=== PATIENT | male | born 1955 | race Caucasian/White ===

== ENCOUNTER → 2020-08-06 09:43 | Outpatient (BNVA) | payer OTHER, SELFPAY | PROVIDERS: Family Provider Family Medicine; PCP Family Medicine; Visit Provider Family Medicine | DX: I10 Essential (primary) hypertension (principal); E78.5 Hyperlipidemia, unspecified; Z12.5 Encounter for screening for malignant neoplasm of prostate | CPT/HCPCS: 80053; 80061; 81015; 82043; 85025; G0103 ==

== ENCOUNTER → 2020-08-07 09:43 | Outpatient (BNVA) | payer OTHER, SELFPAY | PROVIDERS: Family Provider Family Medicine; PCP Family Medicine; Visit Provider Family Medicine | DX: I10 Essential (primary) hypertension (principal); E78.5 Hyperlipidemia, unspecified; E03.9 Hypothyroidism, unspecified; Z12.5 Encounter for screening for malignant neoplasm of prostate | CPT/HCPCS: 84443 ==

== ENCOUNTER 2020-09-11 13:56 | Outpatient (CLI) | payer OTHER, SELFPAY ==
--- NOTE | 2020-09-11 14:01 | XR_ITS ---
WS: [id number] LEFT KNEE: 3 VIEW(S) TECHNIQUE: AP, oblique(s) and lateral. HISTORY: left anterior knee pain COMPARISON: 03/08/2013 No fracture or dislocation. No joint space narrowing or osteophytes. No joint effusion. No soft tissue abnormality. XR/XR knee LT 3V* [id number] IMPRESSION: Normal LEFT knee.
== END 2020-09-11 13:57 | disposition home or self-care (01) ==
LOC: RADWPI 14:00
PROVIDERS: PCP Family Medicine; Visit Provider Family Medicine
DX: M25.562 Pain in left knee (principal)
CPT/HCPCS: 73562

== ENCOUNTER 2020-10-02 13:02 | Outpatient (CLI) | payer OTHER, SELFPAY ==
--- NOTE | 2020-10-02 13:00 | MR_ITS ---
WS: [id number] MRI LEFT KNEE HISTORY: LEFT KNEE PAIN COMPARISON: 09/11/2020 knee radiographs. Anterior cruciate ligament: Intact. Posterior cruciate ligament: Intact. Medial collateral ligament: Intact. Posterior lateral corner structures: Intact. Medial menisci: Intact. Normal signal, size and shape. Lateral meniscus: Intact. Normal signal, size and shape. Extensor mechanism: Distal quadriceps tendon and patellar tendons are intact. Fluid and soft tissue: No joint effusion. No Gong's cyst. Osseous and articular structures: Patellofemoral compartment: Normal. Medial compartment: No significant narrowing or degenerative change. Lateral compartment: No significant narrowing or degenerative change. MR/MR knee LT wo con* [id number] IMPRESSION: Unremarkable MRI LEFT knee. No significant abnormalities are identified.
== END 2020-10-02 13:03 | disposition home or self-care (01) ==
LOC: RADSHAW 13:02
PROVIDERS: PCP Family Medicine; Visit Provider Family Medicine
DX: M25.562 Pain in left knee (principal)
CPT/HCPCS: 73721

== ENCOUNTER → 2020-12-03 08:35 | Outpatient (BNVA) | payer OTHER, SELFPAY | PROVIDERS: PCP Family Medicine; Visit Provider Family Medicine | DX: E03.9 Hypothyroidism, unspecified (principal) | CPT/HCPCS: 84443 ==

== ENCOUNTER → 2021-03-03 09:19 | Outpatient (BNVA) | payer OTHER, SELFPAY | PROVIDERS: PCP Family Medicine; Visit Provider Family Medicine | DX: E78.5 Hyperlipidemia, unspecified (principal) | CPT/HCPCS: 80053; 80061 ==

== ENCOUNTER → 2021-03-19 14:50 | Outpatient (BNVA) | payer OTHER, SELFPAY | PROVIDERS: PCP Family Medicine; Visit Provider Family Medicine | DX: R79.89 Other specified abnormal findings of blood chemistry (principal); M25.562 Pain in left knee | CPT/HCPCS: 80053 ==

== ENCOUNTER → 2021-06-15 09:32 | Outpatient (BNVA) | payer OTHER, SELFPAY | PROVIDERS: PCP Family Medicine; Visit Provider Family Medicine | DX: R79.89 Other specified abnormal findings of blood chemistry (principal); E03.9 Hypothyroidism, unspecified; Z12.5 Encounter for screening for malignant neoplasm of prostate; E78.5 Hyperlipidemia, unspecified; I10 Essential (primary) hypertension | CPT/HCPCS: 80053; 80061; 82043; 84443; 85025; G0103 ==

== ENCOUNTER → 2021-06-17 08:37 | Outpatient (BNVA) | payer OTHER, SELFPAY | PROVIDERS: PCP Family Medicine; Visit Provider Family Medicine | DX: R79.89 Other specified abnormal findings of blood chemistry (principal) | CPT/HCPCS: 80074 ==

== ENCOUNTER 2021-08-16 10:26 | Outpatient (CLI) | payer OTHER, SELFPAY ==
--- NOTE | 2021-08-16 10:15 | US_ITS ---
WS: [id number] ULTRASOUND ABDOMEN LIMITED CLINICAL INFORMATION: elevated LFT's COMPARISON: None. FINDINGS: Liver Size: Normal. Craniocaudal length: 13.0 cm. Echogenicity: Normal. Surface nodularity: None. Mass (size and location): None. Bile ducts Intrahepatic ducts: Normal. Common bile duct diameter: 0.4 cm. Gallbladder Normal. Gallstones: None. Gallbladder sludge: None. Gallbladder wall thickening: None. Pericholecystic fluid: None. Sonographic Minor sign: Absent. Pancreas Normal as visualized. Right kidney: Slightly complex right renal cyst with a single septation measuring 1.0 x 0.8 cm Hydronephrosis: None. Size: 9.5 cm x 4.8 cm x 4.8 cm. Abdominal aorta and IVC Visualized portions are normal. Ascites: None. US/US abdomen limited [id number] IMPRESSION: 1. Normal liver and gallbladder. 2. Hydronephrosis in right kidney. 3. Slightly complex right renal cyst with a single septation measuring 1.0 x 0 .8 cm
== END 2021-08-16 10:27 | disposition home or self-care (01) ==
PROVIDERS: PCP Family Medicine; Visit Provider Family Medicine
DX: R94.5 Abnormal results of liver function studies (principal); N13.30 Unspecified hydronephrosis; N28.1 Cyst of kidney, acquired
CPT/HCPCS: 76705

== ENCOUNTER → 2022-03-18 11:17 | Outpatient (BNVA) | payer OTHER, SELFPAY | PROVIDERS: PCP Family Medicine; Visit Provider Family Medicine | DX: E03.9 Hypothyroidism, unspecified (principal); R79.89 Other specified abnormal findings of blood chemistry; I10 Essential (primary) hypertension; K21.9 Gastro-esophageal reflux disease without esophagitis | CPT/HCPCS: 80053; 84443 ==

== ENCOUNTER → 2022-08-16 08:58 | Outpatient (BNVA) | payer OTHER, SELFPAY | PROVIDERS: PCP Family Medicine; Visit Provider Family Medicine | DX: I10 Essential (primary) hypertension (principal); E78.5 Hyperlipidemia, unspecified; Z12.5 Encounter for screening for malignant neoplasm of prostate; R53.83 Other fatigue | CPT/HCPCS: 80053; 80061; 82043; 84403; 84443; 85025; G0103 ==

== ENCOUNTER → 2023-02-24 11:38 | Outpatient (BNVA) | payer BC, SELFPAY | PROVIDERS: PCP Family Medicine; Visit Provider Family Medicine | DX: E03.9 Hypothyroidism, unspecified (principal); I10 Essential (primary) hypertension | CPT/HCPCS: 80053; 84443 ==

== ENCOUNTER → 2023-08-15 08:24 | Outpatient (BNVA) | payer BC, SELFPAY | PROVIDERS: PCP Family Medicine; Visit Provider Family Medicine | DX: I10 Essential (primary) hypertension (principal); Z13.6 Encounter for screening for cardiovascular disorders; Z12.5 Encounter for screening for malignant neoplasm of prostate; E53.8 Deficiency of other specified B group vitamins; G62.9 Polyneuropathy, unspecified; M16.12 Unilateral primary osteoarthritis, left hip; E78.5 Hyperlipidemia, unspecified; E03.9 Hypothyroidism, unspecified | CPT/HCPCS: 80053; 80061; 82043; 82607; 85025; G0103 ==

== ENCOUNTER → 2024-02-08 08:50 | Outpatient (BNVA) | payer BC, SELFPAY | PROVIDERS: PCP Family Medicine; Visit Provider Family Medicine | DX: I10 Essential (primary) hypertension (principal); Z13.6 Encounter for screening for cardiovascular disorders; E03.9 Hypothyroidism, unspecified; E78.5 Hyperlipidemia, unspecified | CPT/HCPCS: 80053; 84443 ==

== ENCOUNTER → 2024-10-03 09:11 | Outpatient (BNVA) | payer MEDICARE, OTHER, SELFPAY | PROVIDERS: PCP Family Medicine; Visit Provider Family Medicine | DX: E03.9 Hypothyroidism, unspecified (principal); E78.5 Hyperlipidemia, unspecified | CPT/HCPCS: 80053; 80061; 84439; 84443; 85025 ==

== ENCOUNTER → 2025-02-10 09:24 | Outpatient (BNVA) | payer MEDICARE, OTHER, SELFPAY | PROVIDERS: PCP Electrodiagnostic Medicine; Visit Provider Physician Assistant | DX: M16.11 Unilateral primary osteoarthritis, right hip (principal) | CPT/HCPCS: 99213 ==

== ENCOUNTER → 2025-03-04 08:59 | Outpatient (BNVA) | payer MEDICARE, OTHER, SELFPAY | PROVIDERS: PCP Electrodiagnostic Medicine; Visit Provider Podiatrist Foot & Ankle Surgery | DX: G57.92 Unspecified mononeuropathy of left lower limb (principal) | CPT/HCPCS: 99203 ==